=== PATIENT | female | born 1990 | race Hispanic/Latino ===

== ENCOUNTER 2018-07-17 11:40 | Emergency (ER) | payer OTHER ==
[~2018-07-17] VITALS: Ht 165.1 cm; Wt 76.4 kg
[2018-07-17] MEDS ORDERED: NS 500 ML IV ONE (14:15)
[2018-07-17] MEDS ORDERED: ONDANSETRON 4MG/2ML VIAL (J2405) IV ONE (14:15)
[2018-07-17] MEDS ORDERED: KETOROLAC 30 MG/ML VIAL (J1885) IV ONE (14:15)
[2018-07-17 15:03] LABS: BASO % 0.3 % (0.0-1.0); EOS # 0.1 10^3/uL (0.0-0.50); EOS % 1.4 % (0.0-3.0); HEMOGLOBIN 13.7 g/dl (12.0-15.5); LYMPH # 3.4 10^3/uL (1.5-6.5); LYMPH % 35.8 % (24.0-44.0); MEAN CORPUSCULAR HEMOGLOBIN 31.9 pg (27.0-33.0); MEAN CORPUSCULAR HGB CONC 34.3 g/dl (32.0-36.5); MONO # 0.7 10^3/uL (0.0-0.8); MONO % 7.8 % (0.0-5.0); NEUTROPHILS # 5.2 10^3/uL (1.8-7.7); NEUTROPHILS % 54.5 % (36.0-66.0); PLATELET COUNT, AUTOMATED 310 10^3/uL (150-450); WHITE BLOOD COUNT 9.5 10^3/uL (4.0-10.0)
[2018-07-17] MEDS ORDERED: METOCLOPRAMIDE INJ 10MG/2ML VIAL (J2765) IV ONE (15:30)
[2018-07-17 15:46] LABS: BLOOD UREA NITROGEN 6 MG/DL (7-18); CALCIUM LEVEL 8.4 MG/DL (8.5-10.1); CARBON DIOXIDE LEVEL 26 MEQ/L (21-32); CHLORIDE LEVEL 107 MEQ/L (98-107); CREATININE FOR GFR 0.56 MG/DL (0.55-1.30); GLOMERULAR FILTRATION RATE > 60.0 (>60); GLUCOSE, FASTING 68 MG/DL (70-100); HCG, SERUM QUANTITATIVE 141360 MIU/ML; POTASSIUM SERUM 4.1 MEQ/L (3.5-5.1); SODIUM LEVEL 141 MEQ/L (136-145)
[2018-07-17 16:11] VITALS: BP 120/68
--- NOTE | 2018-07-17 16:48 | REP ---
FIRST TRIMESTER ULTRASOUND: Real-time sonographic evaluation of the pelvis was performed utilizing transabdominal technique. There is a single living intrauterine gestation. The estimated gestational age is 7 weeks 6 days based on c crown-rump length of 15 mm, EDC 02/27/2018. heart rate 149 beats per minute. There is no subchorionic hemorrhage. Cystic structure of the left ovary measures 4.8 x 3.8 x 3.6 cm and this may represent a corpus luteum. There is no evidence of left ovarian torsion. Electronically Signed by Benjamin Mcrae MD 07/18/2018 12:41 P
== END 2018-07-17 16:34 | disposition home or self-care (01) ==
LOC: M ED 11:40
DX: N83.202 Unspecified ovarian cyst, left side (principal); Z3A.01 Less than 8 weeks gestation of pregnancy; O99.331 Smoking (tobacco) complicating pregnancy, first trimester; F17.210 Nicotine dependence, cigarettes, uncomplicated

== ENCOUNTER 2018-08-14 19:16 | Emergency (ER) | payer OTHER ==
[~2018-08-14] VITALS: Ht 165.1 cm; Wt 76.8 kg
[2018-08-14 20:10] LABS: BASO % 0.4 % (0.0-1.0); EOS # 0.1 10^3/uL (0.0-0.50); EOS % 1.3 % (0.0-3.0); HEMOGLOBIN 14.2 g/dl (12.0-15.5); LYMPH # 4.5 10^3/uL (1.5-6.5); LYMPH % 42.1 % (24.0-44.0); MEAN CORPUSCULAR HEMOGLOBIN 32.3 pg (27.0-33.0); MEAN CORPUSCULAR HGB CONC 34.6 g/dl (32.0-36.5); MEAN CORPUSCULAR VOLUME 93.4 fl (80.0-96.0); MONO # 0.6 10^3/uL (0.0-0.8); NEUTROPHILS # 5.3 10^3/uL (1.8-7.7); NEUTROPHILS % 49.9 % (36.0-66.0); PLATELET COUNT, AUTOMATED 304 10^3/uL (150-450); RED BLOOD COUNT 4.39 10^6/uL (4.00-5.40); WHITE BLOOD COUNT 10.6 10^3/uL (4.0-10.0)
[2018-08-14 21:06] LABS: BLOOD UREA NITROGEN 7 MG/DL (7-18); CALCIUM LEVEL 8.1 MG/DL (8.5-10.1); CARBON DIOXIDE LEVEL 23 MEQ/L (21-32); CHLORIDE LEVEL 111 MEQ/L (98-107); CREATININE FOR GFR 0.82 MG/DL (0.55-1.30); GLOMERULAR FILTRATION RATE > 60.0 (>60); GLUCOSE, FASTING 88 MG/DL (70-100); HCG, SERUM QUANTITATIVE 28 MIU/ML; POTASSIUM SERUM 3.4 MEQ/L (3.5-5.1); SODIUM LEVEL 142 MEQ/L (136-145)
[2018-08-14] MEDS ORDERED: NEXP1IMP SC (21:06)
--- NOTE | 2018-08-14 23:11 | REPVR ---
EXAM: US First Trimester, Transabdominal EXAM DATE/TIME: 08/14/2018 10:12 PM CLINICAL HISTORY: 27 years old, female; Lmp or gestational age (in weeks): S/P ; Other: Cramping, increased bleeding; ; Patient HX: PT had ab 2 weeks ago, still cramping and bleeding, hcg 28; Additional info: Heavy vaginal bleeding post TECHNIQUE: Imaging protocol: Real-time transabdominal obstetrical ultrasound of the maternal pelvis and a first trimester , less than 14 weeks 0 days, with image documentation. COMPARISON: No relevant prior studies available. FINDINGS: Uterus: No intrauterine gestational sac is seen. Uterus is unremarkable measuring 8.7 x 5.5 x 6.2 cm. Endometrial stripe is normal measuring 4.9-8.2 mm. Cervix: Unremarkable. Right adnexa: Right ovary is unremarkable measuring 2.7 x 1.5 x 2.1 cm. Left adnexa: Left ovary is unremarkable measuring 3.0 x 2.2 x 2.9 cm. Intraperitoneal: No intraperitoneal free fluid. IMPRESSION: Uterus, endometrial stripe, and bilateral ovaries are unremarkable. No intrauterine gestational sac is seen. Electronically signed by: Hilaria Gan On 08/14/2018 23:11:01 PM
[2018-08-14 23:39] LABS: CHLAMYDIA DNA AMPLIFICATION NEGATIVE (NEGATIVE); GC DNA AMPLIFICATION NEGATIVE (NEGATIVE)
[2018-08-14] MEDS ORDERED: FLAG500T PO (23:42)
[2018-08-14 23:55] VITALS: BP 135/71
[2018-08-15] MEDS ORDERED: metroNIDAZOLE (FLAGYL) 500 MG TAB PO ONE
== END 2018-08-15 00:03 | disposition home or self-care (01) ==
LOC: M ED 19:16
DX: O04.6 Delayed or excessive hemorrhage following (induced) termination of pregnancy (principal); R10.9 Unspecified abdominal pain; N76.0 Acute vaginitis; Z87.59 Personal history of other complications of pregnancy, childbirth and the puerperium; G43.909 Migraine, unspecified, not intractable, without status migrainosus; Z87.440 Personal history of urinary (tract) infections; Z72.0 Tobacco use; Z79.3 Long term (current) use of hormonal contraceptives

== ENCOUNTER 2019-02-19 09:35 | Emergency (ER) | payer OTHER ==
[~2019-02-19] VITALS: Ht 165.1 cm; Wt 80.9 kg
[~2019-02-19 09:35] MED LIST: FLAG500T PO; NEXP1IMP SC
[2019-02-19 12:42] LABS: APPEARANCE, URINE CLEAR (CLEAR); BACTERIA, URINE AUTO 1+ (NEGATIVE); BILIRUBIN, URINE AUTO NEGATIVE (NEGATIVE); BLOOD, URINE BLOOD NEGATIVE (NEGATIVE); COLOR, URINE YELLOW (YELLOW); GLUCOSE, URINE (UA) AUTO NEGATIVE (NEGATIVE); KETONE, URINE AUTO NEGATIVE (NEGATIVE); LEUKOCYTE ESTERASE, URINE AUTO NEGATIVE (NEGATIVE); MUCUS, URINE SMALL (NEGATIVE); NITRITE, URINE AUTO NEGATIVE (NEGATIVE); PROTEIN, URINE AUTO NEGATIVE (NEGATIVE); RBC, URINE AUTO 1 /HPF (0-3); SPECIFIC GRAVITY URINE AUTO 1.008 (1.002-1.035); SQUAMOUS EPITHELIAL CELL UR AU 0 /HPF (0-6); UROBILINOGEN, URINE AUTO 0.2 mg/dL (0.0-2.0); WBC, URINE AUTO 1 /HPF (0-3)
[2019-02-19 12:46] LABS: BASO % 0.4 % (0.0-1.0); EOS # 0.2 10^3/uL (0.0-0.5); EOS % 1.7 % (0.0-3.0); HEMATOCRIT 40.8 % (36.0-47.0); HEMOGLOBIN 14.1 g/dl (12.0-15.5); LYMPH # 3.8 10^3/uL (1.5-5.0); LYMPH % 41.5 % (24.0-44.0); MEAN CORPUSCULAR HEMOGLOBIN 31.5 pg (27.0-33.0); MEAN CORPUSCULAR HGB CONC 34.6 g/dl (32.0-36.5); MEAN CORPUSCULAR VOLUME 91.1 fl (80.0-96.0); MONO # 0.6 10^3/uL (0.0-0.8); MONO % 6.1 % (0.0-5.0); NEUTROPHILS # 4.6 10^3/uL (1.5-8.5); NEUTROPHILS % 50.1 % (36.0-66.0); PLATELET COUNT, AUTOMATED 346 10^3/uL (150-450); RED BLOOD COUNT 4.48 10^6/uL (4.00-5.40); WHITE BLOOD COUNT 9.2 10^3/uL (4.0-10.0)
--- NOTE | 2019-02-19 13:05 | REP ---
Duplex extremity venous ultrasound: Left lower extremity. History: Left groin pain. Rule out DVT. Findings: The deep veins are anechoic and fully compressible from the groin to the popliteal fossa in the left lower extremity. Color flow imaging is homogeneous. Spectral Doppler interrogation demonstrates intact respiratory variation in flow and normal manual augmentation of flow. There is no evidence of deep vein thrombosis. Impression: Negative left lower extremity duplex venous ultrasound. No evidence of deep vein thrombosis. Electronically Signed by Johan Ronquillo MD 02/19/2019 12:57 P
[2019-02-19 13:08] LABS: BLOOD UREA NITROGEN 6 MG/DL (7-18); C REACTIVE PROTEIN QUANTITATIV < 0.30 MG/DL (0.00-0.30); CALCIUM LEVEL 9.1 MG/DL (8.5-10.1); CARBON DIOXIDE LEVEL 23 MEQ/L (21-32); CHLORIDE LEVEL 109 MEQ/L (98-107); GLOMERULAR FILTRATION RATE > 60.0 (>60); GLUCOSE, FASTING 90 MG/DL (70-100); HCG, SERUM QUANTITATIVE < 1.0 MIU/ML; POTASSIUM SERUM 3.1 MEQ/L (3.5-5.1); SODIUM LEVEL 139 MEQ/L (136-145)
[2019-02-19 13:25] LABS: ERYTHROCYTE SEDIMENTATION RATE 11 mm/hr (0-20)
[2019-02-19] MEDS: GASTROGRAFIN SOLUTION 30ML PO SCH ×2 (14:40→15:06)
[2019-02-19] MEDS ORDERED: ISOVUE-370 76% 100ML VIAL (Q9967) As Ordered ONE (15:56)
[2019-02-19 17:05] VITALS: BP 124/80
--- NOTE | 2019-02-19 19:22 | REP ---
CT PELVIS WITH ORAL AND IV CONTRAST: CT pelvis is performed following the intravenous administration of 100 mL Isovue-370. Oral contrast was also administered. Sagittal and coronal reconstruction images are performed. Patent iliac arteries are present. The adjacent iliac veins are symmetrical in appearance with no definite filling defect or enlargement. There is no pelvic adenopathy or suspicious mass. Visualized bowel loops demonstrate no thickening or other abnormality. Urinary bladder is moderately distended and unremarkable. Uterus is unremarkable. Left ovary demonstrates a small cystic structure, most consistent with a dominant follicle 1.8 cm in diameter. There is no free air or free fluid in the pelvis. The visualized osseous structures are unremarkable. No inguinal abnormality is seen, with no evidence of hernia or mass. IMPRESSION: Essentially negative CT of the pelvis as discussed in detail above. There is a dominant follicle of the left ovary 1.8 cm in diameter. No other significant abnormalities. Electronically Signed by Benjamin Mcrae MD 02/20/2019 07:19 P
== END 2019-02-19 17:11 | disposition home or self-care (01) ==
LOC: M ED 09:35
DX: N83.202 Unspecified ovarian cyst, left side (principal); F17.210 Nicotine dependence, cigarettes, uncomplicated; Z79.3 Long term (current) use of hormonal contraceptives
CPT/HCPCS: 36415; 72193; 80048; 81001; 84702; 85025; 85379; 85652; 86140; 93971; 99284; Q9963; Q9967

== ENCOUNTER 2019-06-22 14:53 | Emergency (ER) | payer OTHER ==
[~2019-06-22] VITALS: Ht 165.1 cm; Wt 78.2 kg
[2019-06-22] MEDS ORDERED: IBUP-1114 PO (15:02)
[2019-06-22] MEDS ORDERED: ACET1TAB55 PO (15:02)
[2019-06-22 16:02] LABS: BASO % 0.4 % (0.0-1.0); EOS # 0.3 10^3/uL (0.0-0.5); HEMATOCRIT 39.6 % (36.0-47.0); HEMOGLOBIN 13.6 g/dl (12.0-15.5); LYMPH # 3.9 10^3/uL (1.5-5.0); LYMPH % 40.3 % (24.0-44.0); MEAN CORPUSCULAR HEMOGLOBIN 30.8 pg (27.0-33.0); MEAN CORPUSCULAR HGB CONC 34.3 g/dl (32.0-36.5); MEAN CORPUSCULAR VOLUME 89.6 fl (80.0-96.0); MONO # 0.5 10^3/uL (0.0-0.8); MONO % 5.5 % (0.0-5.0); NEUTROPHILS # 4.9 10^3/uL (1.5-8.5); NEUTROPHILS % 50.6 % (36.0-66.0); PLATELET COUNT, AUTOMATED 293 10^3/uL (150-450); RED BLOOD COUNT 4.42 10^6/uL (4.00-5.40); WHITE BLOOD COUNT 9.7 10^3/uL (4.0-10.0)
--- NOTE | 2019-06-22 16:58 | REP ---
Right lower extremity Duplex Doppler venous ultrasound: Real time compression and duplex Doppler interrogation of the right lower extremity deep venous system is performed. The right common femoral, superficial femoral and popliteal veins are fully compressible with transducer pressure and demonstrate normal spontaneous and phasic flow, without evidence of deep venous thrombosis. Impression: No evidence of deep venous thrombosis of the right lower extremity femoral popliteal venous system. Electronically Signed by Benjamin Mcrae MD 06/22/2019 04:49 P
[2019-06-22] MEDS ORDERED: KETOROLAC 30 MG/ML 1ML VIAL IM ONE (17:00)
[2019-06-22 17:16] LABS: ERYTHROCYTE SEDIMENTATION RATE 5 mm/hr (0-20)
[2019-06-22 19:05] VITALS: BP 138/88
--- NOTE | 2019-06-23 07:27 | REP ---
REASON: Pain. FINDINGS: The joint spaces are symmetric and relatively well maintained. There is no evidence of acute fracture or destructive osseous lesion. IMPRESSION: Negative. Electronically Signed by Ulises Phelps DO 06/23/2019 08:25 A
--- NOTE | 2019-06-23 07:28 | REP ---
REASON: Pain. PRIORS: None. COMPARISON: No priors. FINDINGS: No acute fracture or destructive osseous lesion. The mortise is intact. Electronically Signed by Ulises Phelps DO 06/23/2019 08:25 A
--- NOTE | 2019-06-23 07:29 | REP ---
REASON: Pain. FINDINGS: No acute fracture or destructive osseous lesion. Electronically Signed by Ulises Phelps DO 06/23/2019 08:25 A
== END 2019-06-22 19:12 | disposition home or self-care (01) ==
LOC: M ED 14:53
DX: M79.661 Pain in right lower leg (principal); Z91.018 Allergy to other foods; Z79.3 Long term (current) use of hormonal contraceptives
CPT/HCPCS: 73590; 73610; 73630; 80047; 84702; 85025; 85652; 86140; 93971; 96372; 99283; J1885